=== PATIENT | male | born 1965 | race Caucasian/White ===

== ENCOUNTER 2025-03-07 15:15 | Outpatient (CLI) | payer OTHER | END 2025-03-07 15:16 | disposition home or self-care (01) | LOC: ULT 15:15 | PROVIDERS: ATTEND Family Medicine | DX: R74.8 Abnormal levels of other serum enzymes (principal); K80.20 Calculus of gallbladder without cholecystitis without obstruction; R16.0 Hepatomegaly, not elsewhere classified | CPT/HCPCS: 76705 ==